=== PATIENT | male | born 1975 | race Caucasian/White ===

== ENCOUNTER → 2019-10-15 | Outpatient (REF) | payer BC | LOC: M SFHCLACO 11:19 | PROVIDERS: ATTEND Physician Assistant | DX: R53.82 Chronic fatigue, unspecified (principal); N52.9 Male erectile dysfunction, unspecified ==

== ENCOUNTER → 2021-01-19 | Outpatient (REF) | payer BC ==
[2021-01-19 20:29] LABS: HEMOGLOBIN A1c 5.9 %
== END ==
LOC: M SFHCADAM 15:51
PROVIDERS: ATTEND Physician Assistant
DX: R73.9 Hyperglycemia, unspecified (principal)

== ENCOUNTER → 2021-09-08 | Outpatient (REF) | payer BC ==
[2021-09-08 16:28] LABS: ALBUMIN 4.1 GM/DL (3.2-5.2); ALT/SGPT 138 U/L (12-78); BILIRUBIN,TOTAL 0.4 MG/DL (0.2-1.0); BLOOD UREA NITROGEN 9 MG/DL (7-18); CALCIUM LEVEL 9.4 MG/DL (8.5-10.1); CARBON DIOXIDE LEVEL 27 MEQ/L (21-32); CHLORIDE LEVEL 105 MEQ/L (98-107); CHOLESTEROL LEVEL 179 MG/DL (<200); CHOLESTEROL RISK RATIO 2.209 (<5); CREATININE FOR GFR 0.76 MG/DL (0.70-1.30); GLOMERULAR FILTRATION RATE > 60.0 (>60); GLUCOSE, FASTING 91 MG/DL (70-100); HDL CHOLESTEROL 81 MG/DL (>40); LDL CHOLESTEROL 74 MG/DL (<100); NON-HDL-C 98 MG/DL; POTASSIUM SERUM 4.4 MEQ/L (3.5-5.1); SODIUM LEVEL 139 MEQ/L (136-145); TOTAL PROTEIN 7.1 GM/DL (6.4-8.2); TRIGLYCERIDES LEVEL 121 MG/DL (<150)
[2021-09-08 16:37] LABS: TOTAL 25(OH) VITAMIN D 27.9 NG/ML (30.0-100.0)
[2021-09-08 16:57] LABS: MAU/CREAT RATIO 33.6 MCG/MG (0.0-30.0)
== END ==
LOC: M SFHCADAM 14:44
PROVIDERS: ATTEND Physician Assistant
DX: I10 Essential (primary) hypertension (principal); E78.2 Mixed hyperlipidemia; E55.9 Vitamin D deficiency, unspecified

== ENCOUNTER → 2022-08-17 | Outpatient (CLI) | payer BC | LOC: M RAD 09:31 | PROVIDERS: ATTEND Physician Assistant | DX: R74.8 Abnormal levels of other serum enzymes (principal); R16.2 Hepatomegaly with splenomegaly, not elsewhere classified; R14.0 Abdominal distension (gaseous); K76.0 Fatty (change of) liver, not elsewhere classified ==

== ENCOUNTER → 2022-08-17 | Outpatient (REF) | payer BC ==
[2022-08-17 17:03] LABS: HEPATITIS B SURFACE ANTIBODY NEGATIVE (POSITIVE)
[2022-08-17 17:14] LABS: HEPATITIS B SURFACE ANTIGEN NEGATIVE (NEGATIVE)
[2022-08-17 17:35] LABS: HEPATITIS B CORE ANTIBODY IGM NEGATIVE (NEGATIVE)
== END ==
LOC: M SFHCADAM 11:35
PROVIDERS: ATTEND Physician Assistant
DX: R74.8 Abnormal levels of other serum enzymes (principal)

== ENCOUNTER → 2023-04-20 | Outpatient (REF) | payer BC | LOC: M SFHCADAM 09:44 | PROVIDERS: ATTEND Physician Assistant | DX: F10.11 Alcohol abuse, in remission (principal); Z53.9 Procedure and treatment not carried out, unspecified reason ==

== ENCOUNTER → 2023-08-21 | Outpatient (REF) | payer BC ==
[2023-08-21 13:26] LABS: ALBUMIN 4.1 G/DL (3.2-5.2); ALKALINE PHOSPHATASE 47 U/L (46-116); ALT/SGPT 72 U/L (7.0-40); AST/SGOT 42 U/L (<34); BILIRUBIN,TOTAL 0.4 MG/DL (0.3-1.2); BLOOD UREA NITROGEN 9 MG/DL (9-23); CALCIUM LEVEL 9.4 MG/DL (8.5-10.1); CARBON DIOXIDE LEVEL 33 MMOL/L (20-31); CHLORIDE LEVEL 104 MMOL/L (98-107); GLOMERULAR FILTRATION RATE > 60.0 (>60); GLUCOSE, FASTING 96 MG/DL (60-100); SODIUM LEVEL 143 MMOL/L (136-145); TOTAL PROTEIN 6.7 G/DL (5.7-8.2)
== END ==
LOC: M SFHCADAM 08:09
PROVIDERS: ATTEND Physician Assistant
DX: F10.20 Alcohol dependence, uncomplicated (principal)

== ENCOUNTER → 2023-11-20 | Outpatient (REF) | payer BC ==
[2023-11-20 13:29] LABS: BASO % 0.6 % (0.0-1.0); EOS # 0.1 10^3/uL (0.0-0.5); EOS % 1.4 % (0.0-3.0); HEMATOCRIT 45.4 % (42.0-52.0); HEMOGLOBIN 15.3 g/dl (13.5-17.5); LYMPH # 1.8 10^3/uL (1.5-5.0); LYMPH % 25.3 % (24.0-44.0); MEAN CORPUSCULAR HEMOGLOBIN 34.5 pg (27.0-33.0); MEAN CORPUSCULAR HGB CONC 33.7 g/dl (32.0-36.5); MEAN CORPUSCULAR VOLUME 102.5 fl (80.0-96.0); MONO # 0.8 10^3/uL (0.0-0.8); MONO % 11.6 % (2.0-8.0); NEUTROPHILS # 4.2 10^3/uL (1.5-8.5); NEUTROPHILS % 60.8 % (36.0-66.0); PLATELET COUNT, AUTOMATED 233 10^3/uL (150-450); RED BLOOD COUNT 4.43 10^6/uL (4.30-6.10); WHITE BLOOD COUNT 6.9 10^3/uL (4.0-10.0)
[2023-11-20 13:33] LABS: ALBUMIN 3.9 G/DL (3.2-5.2); ALKALINE PHOSPHATASE 61 U/L (46-116); ALT/SGPT 76 U/L (7.0-40); AST/SGOT 44 U/L (<34); BILIRUBIN,TOTAL 0.7 MG/DL (0.3-1.2); BLOOD UREA NITROGEN 10 MG/DL (9-23); CARBON DIOXIDE LEVEL 31 MMOL/L (20-31); CHLORIDE LEVEL 102 MMOL/L (98-107); CHOLESTEROL LEVEL 177 MG/DL (<200); CHOLESTEROL RISK RATIO 2.02 (<5); CREATININE FOR GFR 0.85 MG/DL (0.70-1.30); GLOMERULAR FILTRATION RATE > 60.0 (>60); GLUCOSE, FASTING 102 MG/DL (60-100); HDL CHOLESTEROL 87.3 MG/DL (>40); LDL CHOLESTEROL 73.9 MG/DL (<100); NON-HDL-C 89.7 MG/DL; POTASSIUM SERUM 4.5 MMOL/L (3.5-5.1); SODIUM LEVEL 138 MMOL/L (136-145); THYROID STIMULATING HORMONE 2.844 uIU/ML (0.55-4.78); TOTAL PROTEIN 6.5 G/DL (5.7-8.2); TRIGLYCERIDES LEVEL 79 MG/DL (<150); VITAMIN B12 LEVEL 1295 PG/ML (211-911)
[2023-11-20 13:34] LABS: FREE T4 0.89 NG/DL (0.89-1.76); TESTOSTERONE 240 NG/DL (241-827)
[2023-11-20 13:35] LABS: FOLATE 7.5 NG/ML (>5.4)
[2023-11-20 14:30] LABS: HEMOGLOBIN A1c 5.3 % (4.0-6.0)
== END ==
LOC: M SFHCADAM 08:16
PROVIDERS: ATTEND Physician Assistant
DX: E78.2 Mixed hyperlipidemia (principal); I10 Essential (primary) hypertension; F10.20 Alcohol dependence, uncomplicated; Z98.84 Bariatric surgery status; Z68.43 Body mass index [BMI] 50.0-59.9, adult; R53.82 Chronic fatigue, unspecified; L03.316 Cellulitis of umbilicus; B37.2 Candidiasis of skin and nail

== ENCOUNTER 2023-11-22 11:33 | Observation (INO) | payer BC ==
[~2023-11-22] VITALS: Ht 177.8 cm; Wt 182.5 kg
[2023-11-22] MEDS ORDERED: DOXY100C3 PO (11:46)
[2023-11-22] MEDS ORDERED: HYDR-3490 PO (11:46)
[2023-11-22] MEDS ORDERED: METO1TAB87 PO (11:46)
[2023-11-22] MEDS ORDERED: LISI40TA4 PO (11:46)
[2023-11-22] MEDS ORDERED: VANCOMYCIN HCL 2,000 MG in D5W 500 ML IV ONE (12:00)
[2023-11-22] MEDS: VANCOMYCIN HCL 1,000 MG, VIAL MATE ADAPTER 1 EACH in D5W 250 ML IV ONE ×2 (12:17→13:39)
[2023-11-22 12:26] LABS: BASO % 0.4 % (0.0-1.0); EOS # 0.1 10^3/uL (0.0-0.5); EOS % 1.8 % (0.0-3.0); HEMATOCRIT 45.7 % (42.0-52.0); HEMOGLOBIN 15.4 g/dl (13.5-17.5); LYMPH # 1.6 10^3/uL (1.5-5.0); LYMPH % 28.5 % (24.0-44.0); MEAN CORPUSCULAR HEMOGLOBIN 34.1 pg (27.0-33.0); MEAN CORPUSCULAR HGB CONC 33.7 g/dl (32.0-36.5); MEAN CORPUSCULAR VOLUME 101.1 fl (80.0-96.0); MONO # 0.6 10^3/uL (0.0-0.8); MONO % 10.4 % (2.0-8.0); NEUTROPHILS # 3.3 10^3/uL (1.5-8.5); NEUTROPHILS % 58.7 % (36.0-66.0); PLATELET COUNT, AUTOMATED 240 10^3/uL (150-450); RED BLOOD COUNT 4.52 10^6/uL (4.30-6.10); WHITE BLOOD COUNT 5.7 10^3/uL (4.0-10.0)
[2023-11-22 12:33] LABS: ERYTHROCYTE SEDIMENTATION RATE 32 mm/hr (0-15)
[2023-11-22 12:50] LABS: ALBUMIN 3.6 G/DL (3.2-5.2); ALKALINE PHOSPHATASE 55 U/L (46-116); ALT/SGPT 83 U/L (7.0-40); AST/SGOT 83 U/L (<34); BILIRUBIN,DIRECT 0.2 MG/DL (<0.4); BILIRUBIN,TOTAL 0.7 MG/DL (0.3-1.2); BLOOD UREA NITROGEN 10 MG/DL (9-23); CALCIUM LEVEL 8.8 MG/DL (8.5-10.1); CARBON DIOXIDE LEVEL 30 MMOL/L (20-31); CHLORIDE LEVEL 102 MMOL/L (98-107); CREATININE FOR GFR 0.73 MG/DL (0.70-1.30); GLOMERULAR FILTRATION RATE > 60.0 (>60); GLUCOSE, FASTING 106 MG/DL (60-100); POTASSIUM SERUM 4.9 MMOL/L (3.5-5.1); SODIUM LEVEL 137 MMOL/L (136-145); TOTAL PROTEIN 6.4 G/DL (5.7-8.2)
[2023-11-22 13:02] LABS: PROCALCITONIN 0.06 ng/ml
[2023-11-22] MEDS ORDERED: ISOVUE-370 76% 100ML VIAL As Ordered ONE (13:03)
[2023-11-22] MEDS ORDERED: CHOL400T8 PO (13:09)
[2023-11-22] MEDS ORDERED: OMEG12003 PO (13:09)
[2023-11-22] MEDS ORDERED: VITA-158 PO (13:09)
[2023-11-22] MEDS ORDERED: B-1225002 SL (13:09)
[2023-11-22] MEDS ORDERED: HOME MED LIST COMPLETE! XX SCH (13:10)
[2023-11-22] MEDS: NS 1,000 ML IV ONE (15:35)
[2023-11-22] MEDS ORDERED: LORazepam 2 MG TAB PO PRN (15:50)
[2023-11-22] MEDS ORDERED: **hydrALAZINE** 10 MG TAB PO PRN (15:50)
[2023-11-22 16:14] LABS: ANTI-STREPTOLYSIN O QUANT < 25.0 IU/ML (<195); IRON (FE) 82 UG/DL (65-175); PERCENT SATURATION 20.4 % (19.7-50.0); TOTAL IRON BINDING CAPACITY 402 UG/DL (250-425)
[2023-11-22] MEDS: THIAMINE 100 MG TAB PO SCH (16:14)
[2023-11-22] MEDS: METOPROLOL TART 25 MG TABLET PO SCH (16:15)
[2023-11-22] MEDS: lisinopriL 40MG TAB PO SCH (16:15)
[2023-11-22 16:18] LABS: FERRITIN 65.7 NG/ML (10.5-307.3)
[2023-11-22 16:22] LABS: FOLATE > 24.00 NG/ML (>5.4); VITAMIN B12 LEVEL > 2000 PG/ML (211-911)
[2023-11-22 17:00] VITALS: BP 145/90; TEMP 97.2; O2SAT 95
[2023-11-22 20:00] VITALS: BP 142/91; TEMP 97.2; O2SAT 94
[2023-11-22 20:30] VITALS: BP 142/91
[2023-11-22] MEDS: VANCOMYCIN HCL 1,000 MG, VIAL MATE ADAPTER 1 EACH in D5W 250 ML IV SCH (20:41)
[2023-11-22] MEDS: NYSTATIN 100,000 UNITS/GM TOPICAL PWD 15GM TOP SCH (20:43)
[2023-11-22] MEDS: VANCOMYCIN HCL 750 MG, VIAL MATE ADAPTER 1 EACH in D5W 250 ML IV SCH (22:21)
[2023-11-23 04:00] VITALS: BP 125/84; TEMP 97.2; O2SAT 95
[2023-11-23 06:04] LABS: HEMATOCRIT 43.5 % (42.0-52.0); HEMOGLOBIN 14.6 g/dl (13.5-17.5); MEAN CORPUSCULAR HGB CONC 33.6 g/dl (32.0-36.5); MEAN CORPUSCULAR VOLUME 101.2 fl (80.0-96.0); PLATELET COUNT, AUTOMATED 185 10^3/uL (150-450); WHITE BLOOD COUNT 5.3 10^3/uL (4.0-10.0)
[2023-11-23 06:29] LABS: BLOOD UREA NITROGEN 11 MG/DL (9-23); CALCIUM LEVEL 8.8 MG/DL (8.5-10.1); CARBON DIOXIDE LEVEL 28 MMOL/L (20-31); CHLORIDE LEVEL 105 MMOL/L (98-107); CREATININE FOR GFR 0.73 MG/DL (0.70-1.30); GLOMERULAR FILTRATION RATE > 60.0 (>60); GLUCOSE, FASTING 116 MG/DL (60-100); POTASSIUM SERUM 4.4 MMOL/L (3.5-5.1); SODIUM LEVEL 139 MMOL/L (136-145)
[2023-11-23] MEDS ORDERED: LINE1TAB6 PO (07:04)
[2023-11-23 07:53] LABS: ALBUMIN 3.4 G/DL (3.2-5.2); ALKALINE PHOSPHATASE 55 U/L (46-116); ALT/SGPT 86 U/L (7.0-40); AST/SGOT 69 U/L (<34); BILIRUBIN,DIRECT 0.2 MG/DL (<0.4); BILIRUBIN,TOTAL 0.5 MG/DL (0.3-1.2)
[2023-11-23 08:59] VITALS: BP 156/93
[2023-11-23] MEDS: FOLIC ACID 1MG TAB PO SCH (08:59)
[2023-11-23] MEDS: MULTIVITAMINS/MINERALS THERAP 1 TAB PO SCH (08:59)
[2023-11-23] MEDS: ASCORBIC ACID 500 MG TAB PO SCH (08:59)
[2023-11-23] MEDS: ENOXAPARIN 40MG/0.4ML SYRINGE (J1650 PER 10MG) SC SCH (09:00)
[2023-11-23] MEDS ORDERED: NYST1POW9 TOP (09:51)
[2023-11-23 10:07] VITALS: BP 158/92
[2023-11-23 11:36] VITALS: BP 136/86; O2SAT 95
== END 2023-11-23 14:10 | disposition home or self-care (01) ==
LOC: M ED 11:33 → M ED INP 15:42 → M MS5PR 17:00
PROVIDERS: ADMIT Internal Medicine; ATTEND Internal Medicine
DX: L03.311 Cellulitis of abdominal wall (principal); F10.20 Alcohol dependence, uncomplicated; I10 Essential (primary) hypertension; E66.9 Obesity, unspecified; F41.1 Generalized anxiety disorder; G47.33 Obstructive sleep apnea (adult) (pediatric); D50.9 Iron deficiency anemia, unspecified; Z79.899 Other long term (current) drug therapy
CPT/HCPCS: 36415; 74177; 80048; 80076; 82607; 82728; 82746; 83550; 83605; 84145; 85025; 85027; 85652; 86063; 86140; 87040; 96365; 96366; 96372; 96375; 99284; J1650; J3370; Q9967

== ENCOUNTER → 2024-12-30 | Outpatient (REF) | payer BC ==
[~2024-12-30] MED LIST: B-1225002 SL; CHOL400T8 PO; DOXY100C3 PO; HYDR-3490 PO; LINE1TAB6 PO; LISI40TA10 PO; METO1TAB87 PO; NYST1POW3 TOP; OMEG12003 PO; VITA-158 PO
[2024-12-30 13:48] LABS: BASO # 0.1 10^3/uL (0.0-0.2); BASO % 0.8 % (0.0-1.0); EOS # 0.2 10^3/uL (0.0-0.5); EOS % 2.4 % (0.0-3.0); LYMPH # 2.8 10^3/uL (1.5-5.0); LYMPH % 44.5 % (24.0-44.0); MONO # 0.5 10^3/uL (0.0-0.8); MONO % 8.5 % (2.0-8.0); NEUTROPHILS # 2.8 10^3/uL (1.5-8.5); NEUTROPHILS % 43.5 % (36.0-66.0); PLATELET COUNT, AUTOMATED 195 10^3/uL (150-450)
[2024-12-30 14:11] LABS: ESTIMATED AVERAGE GLUCOSE 108.0 MG/DL (60-110)
[2024-12-30 14:24] LABS: ALT/SGPT 105 U/L (7.0-40); AST/SGOT 72 U/L (<34); CALCIUM LEVEL 8.8 MG/DL (8.5-10.1); CARBON DIOXIDE LEVEL 30 MMOL/L (20-31); CHLORIDE LEVEL 103 MMOL/L (98-107); CHOLESTEROL LEVEL 179 MG/DL (<200); CHOLESTEROL RISK RATIO 2.05 (<5); CREATININE FOR GFR 0.85 MG/DL (0.70-1.30); GLOMERULAR FILTRATION RATE > 90.0 (>56); IRON (FE) 98 UG/DL (65-175); LDL CHOLESTEROL 76.4 MG/DL (<100); NON-HDL-C 91.8 MG/DL; PERCENT SATURATION 24.3 % (19.7-50.0); POTASSIUM SERUM 4.2 MMOL/L (3.5-5.1); SODIUM LEVEL 143 MMOL/L (136-145); TRIGLYCERIDES LEVEL 77 MG/DL (<150)
[2024-12-30 14:26] LABS: TOTAL 25(OH) VITAMIN D 43.4 NG/ML (20.0-100.0)
[2024-12-30 14:27] LABS: VITAMIN B12 LEVEL 1233 PG/ML (211-911)
[2024-12-30 14:28] LABS: FREE T4 0.65 NG/DL (0.89-1.76)
== END ==
LOC: M SFHCADAM 08:28
PROVIDERS: ATTEND Physician Assistant
DX: Z00.00 Encounter for general adult medical examination without abnormal findings (principal); I10 Essential (primary) hypertension; Z86.0101 Personal history of adenomatous and serrated colon polyps; K76.0 Fatty (change of) liver, not elsewhere classified; Z98.84 Bariatric surgery status; F10.90 Alcohol use, unspecified, uncomplicated; E66.01 Morbid (severe) obesity due to excess calories

== ENCOUNTER → 2025-01-27 | Outpatient (REF) | payer BC ==
[2025-01-27 17:20] LABS: CALCIUM LEVEL 9.4 MG/DL (8.5-10.1); CARBON DIOXIDE LEVEL 32 MMOL/L (20-31); CHLORIDE LEVEL 99 MMOL/L (98-107); CREATININE FOR GFR 0.91 MG/DL (0.70-1.30); GLOMERULAR FILTRATION RATE > 90.0 (>56); POTASSIUM SERUM 4.9 MMOL/L (3.5-5.1); SODIUM LEVEL 141 MMOL/L (136-145)
== END ==
LOC: M SFHCADAM 14:26
PROVIDERS: ATTEND Physician Assistant
DX: I10 Essential (primary) hypertension (principal); K76.0 Fatty (change of) liver, not elsewhere classified; R60.9 Edema, unspecified

== ENCOUNTER → 2025-01-30 | Outpatient (CLI) | payer BC | LOC: M ADAMS 15:11 | PROVIDERS: ATTEND Physician Assistant | DX: M17.0 Bilateral primary osteoarthritis of knee (principal); M25.561 Pain in right knee; M25.562 Pain in left knee ==

== ENCOUNTER → 2025-02-18 | Outpatient (CLI) | payer BC | LOC: M RAD 09:53 | PROVIDERS: ATTEND Physician Assistant | DX: M79.89 Other specified soft tissue disorders (principal); M10.9 Gout, unspecified ==

== ENCOUNTER 2025-04-05 11:53 | Emergency (ER) | payer BC ==
[~2025-04-05] VITALS: Ht 177.8 cm; Wt 185.9 kg
[2025-04-05] MEDS ORDERED: ACET650T61 PO (12:11)
[2025-04-05] MEDS ORDERED: FURO20TA2 (12:11)
[2025-04-05 13:08] LABS: BASO # 0.0 10^3/uL (0.0-0.2); BASO % 0.7 % (0.0-1.0); EOS # 0.1 10^3/uL (0.0-0.5); EOS % 1.9 % (0.0-3.0); LYMPH # 2.4 10^3/uL (1.5-5.0); LYMPH % 43.9 % (24.0-44.0); MONO # 0.5 10^3/uL (0.0-0.8); MONO % 9.3 % (2.0-8.0); NEUTROPHILS # 2.4 10^3/uL (1.5-8.5); NEUTROPHILS % 43.8 % (36.0-66.0); PLATELET COUNT, AUTOMATED 173 10^3/uL (150-450)
[2025-04-05 13:29] LABS: APPEARANCE, URINE CLEAR (CLEAR); BACTERIA, URINE AUTO NEGATIVE (NEGATIVE); BILIRUBIN, URINE AUTO NEGATIVE (NEGATIVE); BLOOD, URINE BLOOD NEGATIVE (NEGATIVE); GLUCOSE, URINE (UA) AUTO NEGATIVE (NEGATIVE); KETONE, URINE AUTO NEGATIVE (NEGATIVE); LEUKOCYTE ESTERASE, URINE AUTO NEGATIVE (NEGATIVE); NITRITE, URINE AUTO NEGATIVE (NEGATIVE); PROTEIN, URINE AUTO NEGATIVE (NEGATIVE); RBC, URINE AUTO 0 /HPF (0-3); SPECIFIC GRAVITY URINE AUTO 1.016 (1.002-1.035); SQUAMOUS EPITHELIAL CELL UR AU 0 /HPF (0-6); UROBILINOGEN, URINE AUTO 0.2 mg/dL (0.0-2.0); WBC, URINE AUTO 0 /HPF (0-3)
[2025-04-05 13:34] LABS: ALT/SGPT 118 U/L (7.0-40); AST/SGOT 94 U/L (<34); CALCIUM LEVEL 8.6 MG/DL (8.5-10.1); CARBON DIOXIDE LEVEL 30 MMOL/L (20-31); CHLORIDE LEVEL 101 MMOL/L (98-107); CK-MB VALUE MASS 3.0 NG/ML (<3.6); CREATININE FOR GFR 0.76 MG/DL (0.70-1.30); GLOMERULAR FILTRATION RATE > 90.0 (>56); POTASSIUM SERUM 4.4 MMOL/L (3.5-5.1); SODIUM LEVEL 139 MMOL/L (136-145)
[2025-04-05 13:38] LABS: CPK CREATINE PHOSPHOKINASE 193 U/L (46-171); MB/CK RELATIVE INDEX 1.55 (< OR =4)
[2025-04-05] MEDS: KETOROLAC 30 MG/ML 1 ML VIAL IV ONE (14:00)
[2025-04-05] MEDS: diphenhydrAMINE 50 MG/ML VIAL IV STA (14:00)
[2025-04-05 17:00] VITALS: BP 160/102
[2025-04-05 17:01] VITALS: TEMP 97.3; O2SAT 93
[2025-04-05] MEDS ORDERED: UBRO100T PO (17:01)
[2025-04-05] MEDS ORDERED: SUMA5SPR3 (18:10)
== END 2025-04-05 17:12 | disposition home or self-care (01) ==
LOC: M ED 11:53
DX: R51.9 Headache, unspecified (principal); D44.3 Neoplasm of uncertain behavior of pituitary gland; I10 Essential (primary) hypertension; G47.33 Obstructive sleep apnea (adult) (pediatric); F10.10 Alcohol abuse, uncomplicated; Z79.1 Long term (current) use of non-steroidal anti-inflammatories (NSAID); Z79.899 Other long term (current) drug therapy
CPT/HCPCS: 70450; 80053; 81001; 82550; 82553; 84484; 85025; 93005; 96374; 99284; J1200; J1885; J2765

== ENCOUNTER → 2025-05-01 | Outpatient (CLI) | payer BC ==
[~2025-05-01] MED LIST changes: +ACET650T61 PO; +FURO20TA2; +PROHANCE 279.3MG/ML 15ML VIAL As Ordered ONE; +SUMA5SPR3; +UBRO100T PO
== END ==
LOC: M RAD 15:33
PROVIDERS: ATTEND Neurological Surgery
DX: R90.89 Other abnormal findings on diagnostic imaging of central nervous system (principal)
CPT/HCPCS: 70553; A9579

== ENCOUNTER → 2025-05-08 | Outpatient (CLI) | payer BC ==
[~2025-05-08] MED LIST changes: -PROHANCE 279.3MG/ML 15ML VIAL As Ordered ONE
[2025-05-08 14:08] LABS: CALCIUM LEVEL 9.0 MG/DL (8.5-10.1); CARBON DIOXIDE LEVEL 33 MMOL/L (20-31); CHLORIDE LEVEL 101 MMOL/L (98-107); CREATININE FOR GFR 0.90 MG/DL (0.70-1.30); GLOMERULAR FILTRATION RATE > 90.0 (>56); POTASSIUM SERUM 4.6 MMOL/L (3.5-5.1); SODIUM LEVEL 142 MMOL/L (136-145)
[2025-05-08 14:10] LABS: FREE T4 0.46 NG/DL (0.89-1.76); LUTEINIZING HORMONE 1.4 mIU/ML (1.5-9.3); PROLACTIN 32.29 NG/ML (2.1-17.7)
[2025-05-08 14:11] LABS: TESTOSTERONE 46 NG/DL (241-827)
[2025-05-08 14:12] LABS: CORTISOL AM 4.4 UG/DL (4.3-22.4)
[2025-05-11 18:22] LABS: ADRENOCORTICOTROPHIC HORMONE 36 pg/mL (6-50)
== END ==
LOC: M LABDRWAD 08:48
PROVIDERS: ATTEND Nurse Practitioner Family
DX: D35.2 Benign neoplasm of pituitary gland (principal)